=== PATIENT | male | born 1955 | race Caucasian/White ===

== ENCOUNTER 2020-10-07 07:40 | Day surgery (SDC) | payer MEDICARE ==
[~2020-10-07] VITALS: Ht 175.3 cm; Wt 90.7 kg
[~2020-10-07 07:40] MED LIST: ELIQUIS5 MG PO; FISH OIL1000 MG PO; LIPITOR20 MG PO; LISINOPRIL20 MG PO; MULTI VIT PO; NORVASC5 M1 PO; TENORETIC 501 TAB PO
[2020-10-07 12:07] VITALS: BP 114/60
== END 2020-10-07 12:19 | disposition home or self-care (01) ==
LOC: ENDO 07:40
PROVIDERS: ATTEND Surgery
PROC: 0DBN8ZX Excision of Sigmoid Colon, Via Natural or Artificial Opening Endoscopic, Diagnostic (ICD-10-PCS; principal; 2020-10-07)
DX: Z12.11 Encounter for screening for malignant neoplasm of colon (principal); D12.5 Benign neoplasm of sigmoid colon; K57.30 Diverticulosis of large intestine without perforation or abscess without bleeding; K64.8 Other hemorrhoids; I10 Essential (primary) hypertension; I48.91 Unspecified atrial fibrillation; E78.5 Hyperlipidemia, unspecified